=== PATIENT | female | born 1980 | race Caucasian/White ===

== ENCOUNTER → 2016-12-05 | Outpatient (CLI) | payer OTHER ==
[~2016-12-05] MED LIST: AMBIEN CR12.5 MG PO; AMBIEN CR6.25 MG PO; AMOXICILLIN 8751 TAB PO; ASPIR-LOW81 MG PO; ASPIRIN 81M81 MG/TA2 PO; ATIVAN; ATIVAN 0.50.5 MG/TAB PO; ATIVAN2 MG PO; BENTYL10 MG PO; CALTRATE-600 W600 MG PO; CLOPIDOGREL PO; DEMEROL 50M50 MG/TAB PO; DESYREL PO; DILAUDID 4MG TAB4 MG PO; DILAUDID4 MG PO; EFFEXOR 75M75 MG/TAB PO; FLOMAX 0.40.4 MG/CAP PO; FLUOXETINE; FOSAMAX 70MG TA70 MG PO; GLYCOLAX; KEPPRA 500MG500 MG PO; KLONOPIN 0.5MG0.5 MG PO; LASIX 40MG TABL40 MG PO; LOMOTIL 0.025 M1 TAB PO; LORATADINE10 MG PO; LUNESTA3 MG PO; MAXALT5 MG PO; NORCO 325 MG-51 TAB PO; NORVASC; OXYCODONE10 MG PO; PAMELOR75 MG PO; PAXIL 30MG30 MG PEG; PERCOCET 5/321 UDTAB PO; PEXEVA10 MG PO; PHENERGAN 25 TA25 MG PO; POTASSIUM CH2 MEQ/ML PO; PREDNISONE10 MG; PREDNISONE10 MG PO; PRIL40 PO; PRILOSEC 20MG20 MG PO; PROMETHAZINE12.5 M5 PO; PROZAC40 MG PO; RISPERDAL 1M1 MG/TAB PO; SEROQUEL100 MG PO; SINGULAIR10 MG PO; TYLENOL W/COD1 UDTAB PO; VALIUM 10MG10 MG/TAB PO; XANAX0.25 MG PO; ZANTAC 150150 MG PO; ZOCOR 20MG20 MG PO; ZOCOR 40MG40 MG PO; tambocor PO
== END ==
LOC: BHSO 13:04
DX: F31.81 Bipolar II disorder (principal)

== ENCOUNTER → 2017-01-15 | Outpatient (CLI) | payer OTHER | LOC: BHSO 14:56 | DX: F31.81 Bipolar II disorder (principal) ==

== ENCOUNTER → 2017-02-16 | Outpatient (CLI) | payer OTHER | LOC: BHSO 15:19 | DX: F31.81 Bipolar II disorder (principal) ==

== ENCOUNTER → 2017-04-06 | Outpatient (CLI) | payer OTHER | LOC: BHSO 11:39 | DX: F06.32 Mood disorder due to known physiological condition with major depressive-like episode (principal) ==

== ENCOUNTER 2024-07-27 10:06 | Emergency (ER) | payer OTHER ==
[~2024-07-27] VITALS: Ht 170.2 cm; Wt 104.5 kg
[2024-07-27 10:22] VITALS: TEMP 98
[2024-07-27] MEDS ORDERED: Morphine 4 MG/ML VIAL IV PRN (10:45)
[2024-07-27] MEDS ORDERED: NS 1,000 ML IV ONE (10:45)
[2024-07-27] MEDS ORDERED: Ondansetron 4 MG/2 ML VIAL IV ONE (10:45)
[2024-07-27 11:25] LABS: BASO % 0.4 % (0.0-2.0); EOS # 0.2 K/mm3 (0.0-0.7); EOS % 1.6 % (0.0-4.0); GRAN # 5.9 K/mm3 (1.4-6.5); GRAN % 54.8 % (42.2-75.2); HEMATOCRIT 43.1 % (37.0-47.0); HEMOGLOBIN 14.6 g/dl (12.5-16.0); LYMPH # 4.1 K/mm3 (1.2-3.4); LYMPH % 38.5 % (20.0-51.0); MEAN CELL VOLUME 82 fl (80.0-100.0); MEAN CORPUSCULAR HEMOGLOBIN 28 pg (27-31); MEAN CORPUSCULAR HGB CONC 34 g/dl (33.0-37.0); MEAN PLATELET VOLUME 10.7 fl (7.4-10.4); MONO # 0.5 K/mm3 (0.1-0.6); MONO % 4.5 % (1.7-9.3); PLATELET COUNT 254 K/mm3 (130-400); RED BLOOD COUNT 5.25 M/mm3 (4.10-5.30); REDCELL DISTRIBUTION WIDTH-CV 14.3 % (11.5-14.5)
[2024-07-27 11:32] LABS: COLLECTION METHOD CATHETER
[2024-07-27 11:41] LABS: PH 5.5 (5.0-8.5); URINE APPEARANCE CLOUDY (CLEAR/HAZY); URINE BLOOD NEGATIVE (NEGATIVE); URINE COLOR YELLOW (YELLOW); URINE GLUCOSE NEGATIVE (NEGATIVE); URINE KETONE NEGATIVE (NEGATIVE); URINE NITRATE NEGATIVE (NEGATIVE); URINE PROTEIN(semi-quant) NEGATIVE (NEGATIVE); URINE UROBILINOGEN 0.2 E.U/dL (0.2-1.0)
[2024-07-27 11:54] LABS: ALBUMIN 4.5 g/dL (3.5-5.0); BILIRUBIN,TOTAL 0.6 mg/dL (0.2-1.2); CALCIUM 10.2 mg/dL (8.4-10.2); CREATININE, serum 0.77 mg/dL (0.57-1.11); TOTAL PROTEIN 7.9 g/dl (6.2-8.1)
[2024-07-27] MEDS ORDERED: Iohexol 300 - 100 ML VIAL IV ONE (12:10)
[2024-07-27] MEDS ORDERED: NS 100 ML IV SCH (12:11)
[2024-07-27] MEDS ORDERED: ZOFRAN ODT4 MG PO (13:17)
[2024-07-27] MEDS ORDERED: NORCO 325 MG-51 TAB PO (13:17)
[2024-07-27 13:20] VITALS: BP 137/87; PULSE 64
== END 2024-07-27 13:36 | disposition home or self-care (01) ==
LOC: COL.ER 10:06
PROVIDERS: Personal Emergency Response Attendant
DX: K62.5 Hemorrhage of anus and rectum (principal)
CPT/HCPCS: J2270; J2405; J7030; Q9967